=== PATIENT | male | born 1960 ===

== ENCOUNTER 2022-07-13 14:53 | Outpatient (REF) | payer BC, SELFPAY | END 2022-07-13 14:54 | disposition home or self-care (01) | LOC: HO.SH 14:53 | PROVIDERS: Visit Provider Internal Medicine | DX: Z01.118 Encounter for examination of ears and hearing with other abnormal findings (principal); H90.3 Sensorineural hearing loss, bilateral | CPT/HCPCS: 92557; 92567 ==

== ENCOUNTER 2022-10-04 08:19 | Outpatient (REF) | payer SELFPAY ==
--- NOTE | 2022-10-04 11:20 | MHC.AU.AN1 ---
Hearing Aid Evaluation Date of Visit: 10/04/22 Historical Information: Description of Hearing: Audiogram from our facility dated 07/13/22 reveals borderline normal to mild sensorineural hearing loss 250-2000Hz sloping to a moderate to moderately-severe sensorineural hearing loss 3000-8000Hz in both ears. WRS is excellent bilaterally. See audiogram for report. Summary: Discussed borderline hearing aid candidacy and realistic expectations/benefits with hearing aids. Jose reports difficulty hearing the television and radio (volume is increased) and mishearing his . He works from home and is often on calls and zoom/teams meetings on his laptop. He is motivated to try hearing aids. Discussed different hearing aid styles, rechargability and connectivity to his iPhone and laptop. Quoted pricing. Patient would like to proceed with Phonak Audeo L70-R hearing aids in color Champagne P5, 1/M receivers and open domes. He will likely bring in his iPhone and laptop for us to help set up bluetooth connectivity at the fitting. Paid $350 today. Quoted $3803 + $300 ($4103) due at fitting. He does not wish to add our service plan at this time. Hearing Aid Prescription: Based on the individual?s shared listening needs, communication environments, dexterity, desire for connectivity, and personal preferences, the following prescription for amplification has been made: Right ear: Make, Model, Color: Phonak Audeo L70-R, champagne P5 Battery Size: Rechargeable Director Of Head Start/Slim Tube: 1/M Type of Earmold/Dome/CShell/SlimTip: open Left ear: Left ear prescription to be same as Right Hearing Aid above: Make, Model, Color: Phonak Audeo L70-R, champagne P5 Battery Size: Rechargeable Director Of Head Start/Slim Tube: 1/M Type of Earmold/Dome/CShell/SlimTip: open Plan of Care: Patient wishes to purchase hearing aids as prescribed Primary Diagnosis: H90.3 Bilateral Sensorineural Hearing Loss Signature: Provider: Jory Aponte, [facility]
== END 2022-10-04 08:20 | disposition home or self-care (01) ==
LOC: HO.HAP 08:19
PROVIDERS: Visit Provider Internal Medicine
DX: Z46.1 Encounter for fitting and adjustment of hearing aid (principal); H90.3 Sensorineural hearing loss, bilateral
CPT/HCPCS: 92590

== ENCOUNTER 2022-11-29 08:24 | Outpatient (REF) | payer SELFPAY | END 2022-11-29 08:25 | disposition home or self-care (01) | LOC: HO.HAP 08:24 | DX: Z46.1 Encounter for fitting and adjustment of hearing aid (principal); H90.3 Sensorineural hearing loss, bilateral | CPT/HCPCS: 92595; 92700; V5011; V5020; V5261; V5299 ==

== ENCOUNTER 2022-12-13 08:39 | Outpatient (REF) | payer SELFPAY | END 2022-12-13 08:40 | disposition home or self-care (01) | LOC: HO.HAP 08:39 | PROVIDERS: Visit Provider Internal Medicine | DX: Z13.89 Encounter for screening for other disorder (principal) ==